=== PATIENT | female | born 1965 | race Hispanic/Latino ===

== ENCOUNTER 2016-11-22 16:38 | Emergency (ER) | payer SELFPAY ==
[~2016-11-22] VITALS: Ht 157.5 cm; Wt 73.0 kg
[~2016-11-22 16:38] MED LIST: ADVAIR; ADVAIR 250/501 DISK IH; ALBUTEROL SULF8.5 GM IH; ALBUTEROL17 GM IH; CELEXA40 MG PO; CHANTIX1 MG PO; CLARITIN,ALAVAR10 MG PO; FLEXERIL10 MG PO; MOTRIN800 MG PO; PHENTERMINE H37.5 MG PO; PREDNISONE20 MG PO; PREVACID15 MG PO; PROZAC20 MG PO; PROZAC40 MG PO; SINGULAIR10 MG PO; VICODIN 5-3001 EACH PO; VIIBRYD40 MG PO; ZYRTEC10 M3 PO; ZYRTEC10 MG PO
[2016-11-22 19:16] LABS: HEMATOCRIT 37.4 % (36.0-46.0); MCH 29.8 PG (29.0-34.0); MCHC 34.2 G/DL (30.0-36.0); MEAN PLAT.VOLUME 11.1 uM^3 (9.5-12.4); PLATELET COUNT 225 K/uL (156-360); RBC DIS.WIDTH-CV 13.3 % (11.8-14.6); RBC DIS.WIDTH-SD 42.3 % (39-53); WHITE BLOOD COUNT 7.4 K/uL (4.1-10.2)
[2016-11-22 19:25] LABS: CHLORIDE 105 mEq/L (99-109); POTASSIUM 3.9 mEq/L (3.7-5.4); SODIUM 138 mEq/L (136-147)
[2016-11-22 19:26] LABS: GLUCOSE 79 mg/dL (70-99)
[2016-11-22 19:28] LABS: ANION GAP 10 MEQ/L (2-14)
[2016-11-22 19:30] LABS: GFR ESTIMATE (CALCULATED) > 59 mL/min/
[2016-11-22 19:31] LABS: UREA NITROGEN (BUN) 17 mg/dL (9-23)
[2016-11-22 19:37] LABS: TROP-I INTERPRETATION NEGATIVE; TROPONIN-I < 0.01 ng/mL (0.0-0.30)
[2016-11-22] MEDS ORDERED: SKELAXIN800 MG PO (21:50)
[2016-11-22 22:10] VITALS: BP 107/75
== END 2016-11-22 22:11 | disposition home or self-care (01) ==
LOC: EME 16:38
PROVIDERS: Physician Assistant
DX: M54.12 Radiculopathy, cervical region (principal); M25.511 Pain in right shoulder; I45.10 Unspecified right bundle-branch block; J45.909 Unspecified asthma, uncomplicated; F17.200 Nicotine dependence, unspecified, uncomplicated
CPT/HCPCS: 73200; 80048; 84484; 85027; 93005; 99281; 99285; J1100; J1885